=== PATIENT | male | born 1980 | race Caucasian/White ===

== ENCOUNTER 2020-02-27 14:28 | Emergency (ER) | payer BC ==
[~2020-02-27] VITALS: Ht 172.7 cm; Wt 83.9 kg
[~2020-02-27 14:28] MED LIST: DARVOCET-N 1001 EACH PO; DOXYCYCLINE 10100 MG PO; FLEXERIL PO; MEDROLDOSEPACK PO; NOHOMEMEDICATIONS; ULTRAM 50MG TAB50 MG PO
[2020-02-27 15:34] LABS: INFLUENZA A ANTIGEN Negative (Negative); INFLUENZA B ANTIGEN Negative (Negative)
[2020-02-27 15:57] VITALS: BP 128/84
== END 2020-02-27 15:58 | disposition home or self-care (01) ==
LOC: M.ERS 14:28
PROVIDERS: Nurse Practitioner Family
DX: J98.8 Other specified respiratory disorders (principal); Z20.828 Contact with and (suspected) exposure to other viral communicable diseases

== ENCOUNTER 2020-02-29 10:14 | Emergency (ER) | payer BC ==
[~2020-02-29] VITALS: Ht 172.7 cm; Wt 81.2 kg
[2020-02-29] MEDS ORDERED: AMOXICILLIN 50500 MG PO (11:52)
[2020-02-29 11:57] VITALS: BP 117/80
== END 2020-02-29 11:57 | disposition home or self-care (01) ==
LOC: M.ERS 10:14
DX: J02.9 Acute pharyngitis, unspecified (principal); Z20.828 Contact with and (suspected) exposure to other viral communicable diseases

== ENCOUNTER 2020-11-21 17:54 | Emergency (ER) | payer OTHER ==
[~2020-11-21] VITALS: Ht 172.7 cm; Wt 79.4 kg
[~2020-11-21 17:54] MED LIST changes: +AMOXICILLIN 50500 MG PO
[2020-11-21 18:53] VITALS: BP 132/80
== END 2020-11-21 18:54 | disposition home or self-care (01) ==
LOC: M.ERS 17:54
DX: B34.9 Viral infection, unspecified (principal); Z20.822 Contact with and (suspected) exposure to COVID-19